=== PATIENT | female | born 1945 ===

== ENCOUNTER 2017-03-27 09:35 | Inpatient (IN) | payer MEDICARE, MEDICAID ==
--- NOTE | 2017-03-27 10:31 | ED PDOC ---
HPI: Dental Pain/Injury Time Seen by Provider: 03/27/17 09:59 Chief Complaint (Nursing): Dental Pain Chief Complaint (Provider): Gums bleeding History Per: Patient History/Exam Limitations: no limitations Onset/Duration Of Symptoms: Hrs (Since this morning) Additional Complaint(s): Zaina Rios is a 71 y/o female with a past medical history of Diabetes who is s/ p right knee replacement on 03/01/2017, and presents to the emergency department complaining of bleeding gums and bruising of the arms, hands, and knees, onset this morning. Patient took Eloquis post-operatively, which was discontinued 1 week ago. PMD: Alex Trejo MD Past Medical History - Medical History PMH: Arthritis, Diabetes - Surgical History Other surgeries: Right knee replacement on 03/01/2017, Left knee replacement Oct 2016 - Family History Family History: States: Unknown Family Hx - Social History Current smoker - smoking cessation education provided: No Alcohol: None Drugs: Denies - Home Medications Home Medications: Ambulatory Orders Medication Instructions Recorded Metformin HCl [Glucophage] 1 tab PO BID 03/27/17 Non-Formulary [Non-Formulary] 1 tab PO BID 03/27/17 SITagliptin [Januvia] 1 tab PO DAILY 03/27/17 oxyCODONE/Acetaminophen [Percocet 1 tab PO Q4H PRN 03/27/17 5/325 mg Tab] - Allergies Allergies/Adverse Reactions: Allergies Allergy/AdvReac Type Severity Reaction Status Date / Time moxifloxacin [From Avelox] Allergy RASH Verified 03/27/17 10:06 Review of Systems ROS Statement: Except As Marked, All Systems Reviewed And Found Negative ENT: Positive for: Other (Gums bleeding) Musculoskeletal: Positive for: Other (Bruising of the arms, hands, and knees) Physical Exam - Reviewed Nursing Documentation Reviewed: Yes Vital Signs Reviewed: Yes - Physical Exam Appears: Positive for: Well, Non-toxic, No Acute Distress Head Exam: Positive for: ATRAUMATIC, NORMAL INSPECTION, NORMOCEPHALIC Skin: Positive for: Normal Color, Warm, Dry Eye Exam: Positive for: EOMI, Normal appearance, PERRL ENT: Negative for: Other (Active bleeding from gums) Neck: Positive for: Normal, Painless ROM, Supple Cardiovascular/Chest: Positive for: Regular Rate, Rhythm. Negative for: Murmur Respiratory: Positive for: Normal Breath Sounds. Negative for: Accessory Muscle Use, Respiratory Distress Gastrointestinal/Abdominal: Positive for: Normal Exam, Soft. Negative for: Tenderness Back: Positive for: Normal Inspection. Negative for: Vertebral Tenderness Extremity: Positive for: Other (Right knee suture line is slightly erythematous without drainage. Ecchymosis and petechiae present along the lower extremities and hands bilaterally.) Neurologic/Psych: Positive for: Alert, Oriented - Laboratory Results Result Diagrams: 03/27/17 10:25 03/27/17 10:25 Medical Decision Making Medical Decision Making: Time: 10:15 Plan: --Labs --EKG --Pending reevaluation Scribe Attestation: Documented by Paris Beal, acting as a scribe for Hayden Mackenzie MD Provider Scribe Attestation: All medical record entries made by the Scribe were at my direction and personally dictated by me. I have reviewed the chart and agree that the record accurately reflects my personal performance of the history, physical exam, medical decision making, and the department course for this patient. I have also personally directed, reviewed, and agree with the discharge instructions and disposition. Disposition - Clinical Impression Clinical Impression: Thrombocytopenia, Anemia - Patient ED Disposition Is Patient to be Admitted: Yes - Disposition Disposition Time: 11:30 Condition: FAIR - Pt Status Changed To: Hospital Disposition Of: Inpatient - Admit Certification Admit to Inpatient:: After my assessment, the patient will require hospitalization for at least two midnights. This is because of the severity of symptoms shown, intensity of services needed, and/or the medical risk in this patient being treated as an outpatient. - POA Present On Arrival: None
[2017-03-27 10:50] LABS: ALB/GLOB RATIO 1.1 (1.0-2.1); ALT/SGPT 23 U/L (9-52); AST/SGOT 19 U/L (14-36); BLOOD UREA NITROGEN 12 mg/dl (7-17); GFR AFRICAN-AMERICAN > 60; GFR NON-AFRICAN AMERICAN > 60
[2017-03-27 10:51] LABS: BASO # 0.1 K/uL (0.0-0.2); BASO % 0.8 % (0.0-2.0); EOS # 0.2 K/uL (0.0-0.7); EOS % 2.5 % (0.0-4.0); HEMOGLOBIN 8.2 g/dL (12.0-16.0); LYMPH # 0.9 K/uL (1.0-4.3); LYMPH % 13.6 % (20.0-40.0); MEAN CELL VOLUME 70.7 fl (81.0-99.0); MEAN CORPUSCULAR HEMOGLOBIN 21.3 pg (27.0-31.0); MEAN CORPUSCULAR HGB CONC 30.1 g/dL (33.0-37.0); MONO # 0.8 K/uL (0.0-0.8); MONO % 11.6 % (0.0-10.0); NEUT # 4.7 K/uL (1.8-7.0); NEUT % 71.5 % (50.0-75.0); NRBC % 0.2 % (0.0-0.0); RBC 3.86 Mil/uL (3.80-5.20); RED CELL DISTRIBUTION WIDTH 18.8 % (11.5-14.5); WHITE BLOOD COUNT 6.6 K/uL (4.8-10.8)
[2017-03-27 11:01] LABS: PROTHROMBIN TIME 11.7 Seconds (9.8-13.1)
[2017-03-27] MEDS ORDERED: Absorbable Gelatin Sponge Size 12-7 TP ONE (15:43)
--- NOTE | 2017-03-27 16:17 | CP.PCM.HP ---
History of Present Illness - History of Present Illness History of Present Illness: CC: Tooth Bleeding / Ecchymosis / Thrombocytopenia / Anemia 71 y/o F,[facility] bleeding associated to bruises multiple sites on DOA with no improvement. As per PT, she was shaving her legs day [employer] and discovered bruises in he legs. On DOA AM she was brushing her teeth and notice that begins bleeding from her guns. Worsening symptoms: Critical Lab repot of PLT count in 9. Ecchymosis on all extremities and back, mild pain in R leg, intensity 3:10 2nd to s/p R TKR on February 2017. As per PT: After her first surgery Oct 2016 for L TKR she was taking Eliquis post op without any adverse effect like bleeding and after her last surgery for R TKR on February 2017, again she was placed in Eliquis for DVT prophylaxis without any adverse reaction of hematemesis, melena or ecchymosis until day [employer] that she discover the ecchymosis in her legs, also states that she discontinue the Eliquis one week [employer] Pt denied : Fever, chills, rectal bleeding, melena, weakness, dizziness, n/v/d , abdominal pain, urinary symptoms, CP, Palpitations, SOB, cough, sick contact, recent travel. PMHx: DMII, O/A, Hx L TKR 2016, R TKR March 01, 2017. Present on Admission - Present on Admission Any Indicators Present on Admission: No Review of Systems - Constitutional Constitutional: Other (negative) - EENT Eyes: Other (negative) Ears: Other (negative) Nose/Mouth/Throat: Bleeding Gums - Cardiovascular Cardiovascular: Other (negative) - Respiratory Respiratory: Other (negative) - Gastrointestinal Gastrointestinal: Other (negative) - Genitourinary Genitourinary: Other (negative) - Musculoskeletal Musculoskeletal: Arthralgias, Limited Range of Motion (R leg 2nd to surgery), Other (pain in R knee 2nd to surgery.) - Integumentary Integumentary: Unusual Bruising (extremities and back) - Neurological Neurological: Other (negative) - Psychiatric Psychiatric: Other (negative) - Endocrine Endocrine: Other (negative) - Hematologic/Lymphatic Hematologic: Other (negative) Past Patient History - Infectious Disease Hx of Infectious Diseases: None - Past Social History Smoking Status: Never Smoked Alcohol: None Drugs: Denies Home Situation {Lives}: With Family - CARDIAC Hx Cardiac Disorders: No - PULMONARY Hx Respiratory Disorders: No - NEUROLOGICAL Hx Neurological Disorder: No - HEENT Hx HEENT Problems: No - RENAL Hx Chronic Kidney Disease: No - ENDOCRINE/METABOLIC Hx Endocrine Disorders: Yes Hx Diabetes Mellitus Type 2: Yes - HEMATOLOGICAL/ONCOLOGICAL Hx Anemia: No - INTEGUMENTARY Hx Dermatological Problems: No - MUSCULOSKELETAL/RHEUMATOLOGICAL Hx Musculoskeletal Disorders: Yes Hx Arthritis: Yes (knees) - GASTROINTESTINAL Hx Gastrointestinal Disorders: No - GENITOURINARY/GYNECOLOGICAL Hx Genitourinary Disorders: No - PSYCHIATRIC Hx Psychophysiologic Disorder: No - SURGICAL HISTORY Hx Surgeries: Yes Other/Comment: left knee replacement oct 2016 and right knee replacement march 01 2017 - ANESTHESIA Hx Anesthesia: Yes Hx Anesthesia Reactions: No Meds Allergies/Adverse Reactions: Allergies Allergy/AdvReac Type Severity Reaction Status Date / Time moxifloxacin [From Avelox] Allergy RASH Verified 03/27/17 10:06 Physical Exam - Constitutional Appears: No Acute Distress - Head Exam Head Exam: NORMAL INSPECTION - Eye Exam Eye Exam: PERRL - ENT Exam Additional comments: mouth L upper tooth with a cloth , no active bleeding , part of thee tooth appears to be missing , area was not palpated to avoid active bleeding - Neck Exam Neck exam: Positive for: Normal Inspection - Respiratory Exam Respiratory Exam: NORMAL BREATHING PATTERN - Cardiovascular Exam Cardiovascular Exam: REGULAR RHYTHM - GI/Abdominal Exam GI & Abdominal Exam: Normal Bowel Sounds, Soft - Extremities Exam Additional comments: Ecchymosis Upper and lower extremities. R TKR , decreased ROM R leg 2nd to surgery. L TKR healed scar. - Back Exam Additional comments: Ecchymosis - Neurological Exam Neurological exam: Alert, Oriented x3 Additional comments: no motor/sensory deficit - Psychiatric Exam Psychiatric exam: Normal Mood - Skin Skin Exam: Warm Additional comments: Ecchymosis Extremities and back. Results - Vital Signs Recent Vital Signs: Last Vital Signs Temp 98.1 F 03/27/17 15:52 Pulse 84 03/27/17 15:52 Resp 18 03/27/17 15:52 BP 117/70 03/27/17 15:52 Pulse Ox 100 03/27/17 15:52 reviewed Yanely - Labs Result Diagrams: 03/28/17 05:10 03/28/17 05:10 Labs: Laboratory Results - last 24 hr 03/27/17 03/27/17 03/27/17 12:19 13:03 15:57 POC Glucose (mg/dL) 124 H Blood Type O POSITIVE Blood Type Confirm O POSITIVE Antibody Screen Negative BBK History Checked No verified bt reviewed J.PLorena Assessment & Plan (1) Thrombocytopenia Status: Acute Priority: High (2) Anemia Status: Acute Priority: High (3) Multiple bruises Status: Acute Priority: High (4) Status post total knee replacement, right Status: Chronic Priority: High (5) Status post total knee replacement, left Status: Chronic Priority: Medium (6) DMII (diabetes mellitus, type 2) Status: Chronic Priority: Medium - Assessment and Plan (Free Text) Plan: Transfuse 2 U PLT type and Crossmatch, 2 U PRBC, liquid diet, PT, f/u CXR, f/u in AM: CBC, manual PLT count, Hgb, Hematology Consult, see rest of orders. - Date & Time Date: 03/27/17 Time: 12:30
[2017-03-27] MEDS: Insulin Regular 100 units/ml SC SCH ×2 (16:35→23:00)
[2017-03-27 17:36] LABS: IRON 30 ug/dL (37-170)
[2017-03-27 17:38] LABS: FERRITIN 25.6 ng/mL
[2017-03-27 17:45] LABS: % IRON SATURATION 8 % (20-55); TOTAL IRON BINDING CAPACITY 371 ug/dL (250-450)
[2017-03-27] MEDS ORDERED: Promethazine/Cod 6.25mg-10mg/5ml Syr UD PO PRN (17:48)
[2017-03-27] MEDS: Oxycodone/Acetaminophen 5/325 mg Tab PO PRN (19:43)
[2017-03-28] MEDS: Oxycodone/Acetaminophen 5/325 mg Tab PO PRN ×4 (01:00→23:17)
[2017-03-28] MEDS: Insulin Regular 100 units/ml SC SCH ×4 (06:36→23:14)
[2017-03-28 07:11] LABS: BASO # 0.1 K/uL (0.0-0.2); BASO % 1.2 % (0.0-2.0); EOS # 0.2 K/uL (0.0-0.7); EOS % 3.1 % (0.0-4.0); HEMOGLOBIN 7.6 g/dL (12.0-16.0); LYMPH # 1.3 K/uL (1.0-4.3); LYMPH % 23.9 % (20.0-40.0); MEAN CELL VOLUME 70.1 fl (81.0-99.0); MEAN CORPUSCULAR HEMOGLOBIN 21.5 pg (27.0-31.0); MEAN CORPUSCULAR HGB CONC 30.6 g/dL (33.0-37.0); MEAN PLATELET VOLUME 11.3 fl (7.2-11.7); MONO # 0.7 K/uL (0.0-0.8); MONO % 13.5 % (0.0-10.0); NEUT # 3.2 K/uL (1.8-7.0); NEUT % 58.3 % (50.0-75.0); NRBC % 0.1 % (0.0-0.0); RBC 3.53 Mil/uL (3.80-5.20); WHITE BLOOD COUNT 5.5 K/uL (4.8-10.8)
[2017-03-28 07:35] LABS: ALB/GLOB RATIO 1.1 (1.0-2.1); ALBUMIN 3.7 g/dL (3.5-5.0); ALT/SGPT 24 U/L (9-52); AST/SGOT 24 U/L (14-36); BLOOD UREA NITROGEN 11 mg/dl (7-17); CALCIUM 9.8 mg/dL (8.4-10.2); GFR AFRICAN-AMERICAN > 60; GFR NON-AFRICAN AMERICAN > 60
--- NOTE | 2017-03-28 07:58 | CARD ---
APPROVED REPORT EKG Measurement Heart [id number] [id number] <Conclusion> Normal sinus rhythm Normal ECG
--- NOTE | 2017-03-28 11:47 | RAD ---
PROCEDURE: CHEST RADIOGRAPH, 1 VIEW HISTORY: coughing with clots COMPARISON: 10/07/2009 FINDINGS: LUNGS: Clear. PLEURA: No pneumothorax or pleural fluid seen. CARDIOVASCULAR: Normal. OSSEOUS STRUCTURES: Healed fracture right humeral diaphysis. Severe left glenohumeral osteoarthritis. VISUALIZED UPPER ABDOMEN: Normal. OTHER FINDINGS: None. IMPRESSION: No active disease.
--- NOTE | 2017-03-28 11:49 | CP.PCM.CON ---
History of Present Illness - History of Present Illness History of Present Illness: This is a 71 yrs old female who was admitted for severe thrombocytopenia. She had a right knee replacement 3 weeks ago, and was told to take eliquis for 2 weeks. Pt stopped the eliquis 1 week ago. She had no complication during surgery, and after, She did not take any lovenox because she does not like injections.. She was not on any new medicines either. She did not have any problem with the 1st knee replacement. She was on no new drugs , no aspirin or plavix. She is on medications for her diiabetes, but it is the same medicine she has had for a long time. Her platelet count was 9 om admission and hgb 8.2. The hgb today is 7.5 and the platelets were 10K. Both of these were after she had been given a platelet transfusion. She had bleeding from a tooth and it did not stop until she came to the ER. Past Patient History - Infectious Disease Hx of Infectious Diseases: None - Past Medical History & Family History Past Medical History?: No - Past Social History Smoking Status: Never Smoked Alcohol: None Drugs: Denies Home Situation {Lives}: With Family - CARDIAC Hx Cardiac Disorders: No - PULMONARY Hx Respiratory Disorders: No - NEUROLOGICAL Hx Neurological Disorder: No - HEENT Hx HEENT Problems: No - RENAL Hx Chronic Kidney Disease: No - ENDOCRINE/METABOLIC Hx Endocrine Disorders: Yes Hx Diabetes Mellitus Type 2: Yes - HEMATOLOGICAL/ONCOLOGICAL Hx Anemia: No - INTEGUMENTARY Hx Dermatological Problems: No - MUSCULOSKELETAL/RHEUMATOLOGICAL Hx Musculoskeletal Disorders: Yes Hx Arthritis: Yes (knees) - GASTROINTESTINAL Hx Gastrointestinal Disorders: No - GENITOURINARY/GYNECOLOGICAL Hx Genitourinary Disorders: No - PSYCHIATRIC Hx Psychophysiologic Disorder: No - SURGICAL HISTORY Hx Surgeries: Yes Other/Comment: left knee replacement oct 2016 and right knee replacement march 01 2017 - ANESTHESIA Hx Anesthesia: Yes Hx Anesthesia Reactions: No Meds Allergies/Adverse Reactions: Allergies Allergy/AdvReac Type Severity Reaction Status Date / Time moxifloxacin [From Avelox] Allergy RASH Verified 03/27/17 10:06 - Medications Medications: Current Medications Insulin Human Regular (Humulin R) 0 units SC ACHS LALO PRN Reason: Protocol Last Admin: 03/28/17 06:36 Dose: Not Given Ondansetron HCl (Zofran Inj) 4 mg IVP Q4 PRN PRN Reason: Nausea/Vomiting Oxycodone/Acetaminophen (Percocet 5/325 Mg Tab) 1 tab PO Q4H PRN PRN Reason: Pain, Mild (1-3) Stop: 03/30/17 15:42 Last Admin: 03/28/17 10:18 Dose: 1 tab Promethazine HCl/Codeine (Phenergan/Codeine Oral Syrup) 10 ml PO Q4H PRN PRN Reason: Cough Last Admin: 03/27/17 18:04 Dose: 10 ml Physical Exam - Additional Findings Additional findings: Physical exam' Alert, well oriented in no acute distress neck; Supple, no adenopathy Chest; Clear, no rales or rhonchi Heart; RSR, no murmur Abd; Soft, no mass, no h/s megaly Results - Vital Signs Recent Vital Signs: Last Vital Signs Temp 98.4 F 03/28/17 08:00 Pulse 83 03/28/17 09:00 Resp 18 03/28/17 08:00 BP 94/46 L 03/28/17 08:00 Pulse Ox 97 03/28/17 08:00 - Labs Result Diagrams: 03/28/17 05:10 03/28/17 05:10 Labs: Laboratory Results - last 24 hr 03/27/17 03/27/17 03/27/17 12:19 13:03 15:50 WBC RBC Hgb Hct MCV MCH MCHC RDW Plt Count Manual Plt Count 8 L* MPV Neut % (Auto) Lymph % (Auto) Stan[place] % (Auto) Eos % (Auto) Baso % (Auto) Neut # Lymph # Stan[place] # Eos # Baso # Retic Count 1.7 H Fibrinogen Sodium Potassium Chloride Carbon Dioxide Anion Gap BUN Creatinine Est GFR ( Amer) Est GFR (Non-Af Amer) POC Glucose (mg/dL) Random Glucose Calcium Iron TIBC % Saturation Ferritin Total Bilirubin AST ALT Alkaline Phosphatase Total Protein Albumin Globulin Albumin/Globulin Ratio Vitamin B12 Blood Type O POSITIVE Blood Type Confirm O POSITIVE Antibody Screen Negative Crossmatch See Detail BBK History Checked No verified bt 03/27/17 03/27/17 03/27/17 15:57 16:00 16:00 WBC RBC Hgb Hct MCV MCH MCHC RDW Plt Count Manual Plt Count MPV Neut % (Auto) Lymph % (Auto) Stan[place] % (Auto) Eos % (Auto) Baso % (Auto) Neut # Lymph # Stan[place] # Eos # Baso # Retic Count Fibrinogen 546 H Sodium Potassium Chloride Carbon Dioxide Anion Gap BUN Creatinine Est GFR ( Amer) Est GFR (Non-Af Amer) POC Glucose (mg/dL) 124 H Random Glucose Calcium Iron 30 L TIBC 371 % Saturation 8 L Ferritin Total Bilirubin AST ALT Alkaline Phosphatase Total Protein Albumin Globulin Albumin/Globulin Ratio Vitamin B12 Blood Type Blood Type Confirm Antibody Screen Crossmatch BBK History Checked 03/27/17 03/27/17 03/28/17 16:00 21:07 05:08 WBC RBC Hgb Hct MCV MCH MCHC RDW Plt Count Manual Plt Count MPV Neut % (Auto) Lymph % (Auto) Stan[place] % (Auto) Eos % (Auto) Baso % (Auto) Neut # Lymph # Stan[place] # Eos # Baso # Retic Count Fibrinogen Sodium Potassium Chloride Carbon Dioxide Anion Gap BUN Creatinine Est GFR ( Amer) Est GFR (Non-Af Amer) POC Glucose (mg/dL) 103 77 Random Glucose Calcium Iron TIBC % Saturation Ferritin 25.6 Total Bilirubin AST ALT Alkaline Phosphatase Total Protein Albumin Globulin Albumin/Globulin Ratio Vitamin B12 258 Blood Type Blood Type Confirm Antibody Screen Crossmatch BBK History Checked 03/28/17 03/28/17 03/28/17 05:10 05:10 11:37 WBC 5.5 RBC 3.53 L Hgb 7.6 L Hct 24.8 L MCV 70.1 L MCH 21.5 L MCHC 30.6 L RDW 19.0 H Plt Count 10 L* Manual Plt Count MPV 11.3 Neut % (Auto) 58.3 Lymph % (Auto) 23.9 Stan[place] % (Auto) 13.5 H Eos % (Auto) 3.1 Baso % (Auto) 1.2 Neut # 3.2 Lymph # 1.3 Stanly # 0.7 Eos # 0.2 Baso # 0.1 Retic Count Fibrinogen Sodium 141 Potassium 3.6 Chloride 105 Carbon Dioxide 28 Anion Gap 12 BUN 11 Creatinine 0.5 L Est GFR ( Amer) > 60 Est GFR (Non-Af Amer) > 60 POC Glucose (mg/dL) 113 H Random Glucose 80 Calcium 9.8 Iron TIBC % Saturation Ferritin Total Bilirubin 0.6 AST 24 ALT 24 Alkaline Phosphatase 78 Total Protein 7.2 Albumin 3.7 Globulin 3.5 Albumin/Globulin Ratio 1.1 Vitamin B12 Blood Type Blood Type Confirm Antibody Screen Crossmatch BBK History Checked Assessment & Plan - Assessment and Plan (Free Text) Assessment: Impression; Severe thrombocytopenia snd severe anemia .Etiology to be determined. Plan: Plan; Will transfuse today also. If the counts do not improve by tomorrow, will do a bone marrow test have ordered anti platelet antibodies. - Date & Time Date: 03/28/17 Time: 12:00
--- NOTE | 2017-03-28 16:35 | CP.PCM.PN ---
Subjective - Date & Time of Evaluation Date of Evaluation: 03/28/17 Time of Evaluation: 11:30 - Subjective Subjective: F/U Thrombocytopenia/ Anemia Pt with no A/D, family at bedside, no c/o, no further bleeding thought the mouth. Objective - Vital Signs/Intake and Output Vital Signs (last 24 hours): Temp Pulse Resp BP Pulse Ox 98.1 F 78 20 120/68 98 03/28/17 15:38 03/28/17 15:38 03/28/17 15:38 03/28/17 15:38 03/28/17 15:38 - Medications Medications: Current Medications Insulin Human Regular (Humulin R) 0 units SC ACHS LALO PRN Reason: Protocol Last Admin: 03/28/17 11:30 Dose: Not Given Ondansetron HCl (Zofran Inj) 4 mg IVP Q4 PRN PRN Reason: Nausea/Vomiting Oxycodone/Acetaminophen (Percocet 5/325 Mg Tab) 1 tab PO Q4H PRN PRN Reason: Pain, Mild (1-3) Stop: 03/30/17 15:42 Last Admin: 03/28/17 10:18 Dose: 1 tab Promethazine HCl/Codeine (Phenergan/Codeine Oral Syrup) 10 ml PO Q4H PRN PRN Reason: Cough Last Admin: 03/27/17 18:04 Dose: 10 ml - Labs Labs: 03/28/17 05:10 03/28/17 05:10 PT 11.7 Seconds (9.8-13.1) 03/27/17 10:25 INR 1.0 (0.9-1.2) 03/27/17 10:25 - Constitutional Appears: No Acute Distress - Head Exam Head Exam: NORMAL INSPECTION - Eye Exam Eye Exam: PERRL - ENT Exam Additional comments: Mouth: L upper tooth with a cloth, no active bleeding, part of the tooth appear to be missing, area was not palpated to avoid active bleeding. - Neck Exam Neck Exam: Normal Inspection - Respiratory Exam Respiratory Exam: NORMAL BREATHING PATTERN - Cardiovascular Exam Cardiovascular Exam: REGULAR RHYTHM - GI/Abdominal Exam GI & Abdominal Exam: Soft, Normal Bowel Sounds - Extremities Exam Additional comments: Ecchymosis upper and lower extremities. R TKR recent scar , decreased ROM 2nd to surgery, L TKR healed scar. - Back Exam Additional comments: Ecchymosis. - Neurological Exam Neurological Exam: Alert, Oriented x3. absent: Motor Sensory Deficit - Psychiatric Exam Psychiatric exam: Normal Mood - Skin Skin Exam: Warm Assessment and Plan (1) Thrombocytopenia Status: Acute (2) Anemia Status: Acute (3) Multiple bruises Status: Acute (4) Status post total knee replacement, right Status: Chronic (5) Status post total knee replacement, left Status: Chronic (6) DMII (diabetes mellitus, type 2) Status: Chronic - Assessment and Plan (Free Text) Plan: Transfuse 2 U PRBC, Hgb was in 7.8 ,f/u 2 U PLT transfusion, f/u in AM CBC, PLT count , Labs Iron def , B12 def, Hematology implementation consultant planning Bone Marrow in am if counts do not improve
[2017-03-29] MEDS: Oxycodone/Acetaminophen 5/325 mg Tab PO PRN ×3 (05:20→17:52)
[2017-03-29] MEDS: Insulin Regular 100 units/ml SC SCH ×4 (06:29→21:54)
[2017-03-29 06:57] LABS: HEMOGLOBIN 10.9 g/dL (12.0-16.0); MEAN CELL VOLUME 74.5 fl (81.0-99.0); MEAN CORPUSCULAR HEMOGLOBIN 23.5 pg (27.0-31.0); MEAN CORPUSCULAR HGB CONC 31.5 g/dL (33.0-37.0); RBC 4.63 Mil/uL (3.80-5.20); RED CELL DISTRIBUTION WIDTH 21.4 % (11.5-14.5); WHITE BLOOD COUNT 7.2 K/uL (4.8-10.8)
[2017-03-29] MEDS ORDERED: Lidocaine 2% Inj (20ml) SC ONE (08:15)
--- NOTE | 2017-03-29 09:23 | CP.PCM.PN ---
Subjective - Date & Time of Evaluation Date of Evaluation: 03/29/17 Time of Evaluation: 09:21 - Subjective Subjective: Pt's hgb is stable, but the plateet iare still very low 9k. Will do a bone marrow test today Objective - Vital Signs/Intake and Output Vital Signs (last 24 hours): Temp Pulse Resp BP Pulse Ox 97.6 F 86 20 135/67 100 03/29/17 08:05 03/29/17 08:05 03/29/17 08:05 03/29/17 08:05 03/29/17 08:05 - Medications Medications: Current Medications Cyanocobalamin (Vitamin B12 1000 Mcg/Ml Inj) 1,000 mcg IM DAILY LALO Insulin Human Regular (Humulin R) 0 units SC ACHS LALO PRN Reason: Protocol Last Admin: 03/29/17 06:29 Dose: Not Given Ondansetron HCl (Zofran Inj) 4 mg IVP Q4 PRN PRN Reason: Nausea/Vomiting Oxycodone/Acetaminophen (Percocet 5/325 Mg Tab) 1 tab PO Q4H PRN PRN Reason: Pain, Mild (1-3) Stop: 03/30/17 15:42 Last Admin: 03/29/17 05:20 Dose: 1 tab Promethazine HCl/Codeine (Phenergan/Codeine Oral Syrup) 10 ml PO Q4H PRN PRN Reason: Cough Last Admin: 03/27/17 18:04 Dose: 10 ml - Labs Labs: 03/29/17 06:00 03/28/17 05:10 PT 11.7 Seconds (9.8-13.1) 03/27/17 10:25 INR 1.0 (0.9-1.2) 03/27/17 10:25
--- NOTE | 2017-03-29 10:32 | CP.PCM.PN ---
Subjective - Date & Time of Evaluation Date of Evaluation: 03/29/17 Time of Evaluation: 10:30 - Subjective Subjective: Bone marrow aspiration done from the left iliac crest under local anesthesia. Procedure tolerated well. Result to follow. Objective - Vital Signs/Intake and Output Vital Signs (last 24 hours): Temp Pulse Resp BP Pulse Ox 97.6 F 86 20 135/67 100 03/29/17 08:05 03/29/17 08:05 03/29/17 08:05 03/29/17 08:05 03/29/17 08:05 - Medications Medications: Current Medications Cyanocobalamin (Vitamin B12 1000 Mcg/Ml Inj) 1,000 mcg IM DAILY LALO Insulin Human Regular (Humulin R) 0 units SC ACHS LALO PRN Reason: Protocol Last Admin: 03/29/17 06:29 Dose: Not Given Ondansetron HCl (Zofran Inj) 4 mg IVP Q4 PRN PRN Reason: Nausea/Vomiting Oxycodone/Acetaminophen (Percocet 5/325 Mg Tab) 1 tab PO Q4H PRN PRN Reason: Pain, Mild (1-3) Stop: 03/30/17 15:42 Last Admin: 03/29/17 10:10 Dose: 1 tab Promethazine HCl/Codeine (Phenergan/Codeine Oral Syrup) 10 ml PO Q4H PRN PRN Reason: Cough Last Admin: 03/27/17 18:04 Dose: 10 ml - Labs Labs: 03/29/17 06:00 03/28/17 05:10 PT 11.7 Seconds (9.8-13.1) 03/27/17 10:25 INR 1.0 (0.9-1.2) 03/27/17 10:25
--- NOTE | 2017-03-29 14:22 | CP.PCM.PN ---
Subjective - Date & Time of Evaluation Date of Evaluation: 03/29/17 Time of Evaluation: 11:40 - Subjective Subjective: F/U Thrombocytopenia. Objective - Vital Signs/Intake and Output Vital Signs (last 24 hours): Temp Pulse Resp BP Pulse Ox 97.9 F 85 20 124/65 96 03/29/17 12:27 03/29/17 12:27 03/29/17 12:27 03/29/17 12:27 03/29/17 12:27 - Medications Medications: Current Medications Cyanocobalamin (Vitamin B12 1000 Mcg Tab) 1,000 mcg PO DAILY [facility] Epoetin Reese (Procrit) 10,000 unit SC MWF [facility] Iron Sucrose 100 mg/ Sodium (Chloride) 105 mls @ 105 mls/hr IVPB DAILY [facility] Insulin Human Regular (Humulin R) 0 units SC ACHS LALO PRN Reason: Protocol Last Admin: 03/29/17 11:30 Dose: 1 unit Ondansetron HCl (Zofran Inj) 4 mg IVP Q4 PRN PRN Reason: Nausea/Vomiting Oxycodone/Acetaminophen (Percocet 5/325 Mg Tab) 1 tab PO Q4H PRN PRN Reason: Pain, Mild (1-3) Stop: 03/30/17 15:42 Last Admin: 03/29/17 10:10 Dose: 1 tab Prednisone (Prednisone Tab) 20 mg PO TID [facility] Last Admin: 03/29/17 14:07 Dose: 20 mg Promethazine HCl/Codeine (Phenergan/Codeine Oral Syrup) 10 ml PO Q4H PRN PRN Reason: Cough Last Admin: 03/27/17 18:04 Dose: 10 ml - Labs Labs: 03/29/17 06:00 03/28/17 05:10 PT 11.7 Seconds (9.8-13.1) 03/27/17 10:25 INR 1.0 (0.9-1.2) 03/27/17 10:25 - Constitutional Appears: No Acute Distress - Head Exam Head Exam: NORMAL INSPECTION - Eye Exam Eye Exam: PERRL - ENT Exam Additional comments: Mouth: L upper tooth with a cloth, no active bleeding, part of the tooth appear to be missing, area was not palpated to avoid bleeding. - Neck Exam Neck Exam: Normal Inspection - Respiratory Exam Respiratory Exam: NORMAL BREATHING PATTERN - Cardiovascular Exam Cardiovascular Exam: REGULAR RHYTHM - GI/Abdominal Exam GI & Abdominal Exam: Soft, Normal Bowel Sounds - Extremities Exam Additional comments: Ecchymosis all extremities, R TKR dressing in place with decreased ROM 2nd to recent surgery, L TKR healed scar. - Back Exam Additional comments: Ecchymosis - Neurological Exam Neurological Exam: Alert, Oriented x3. absent: Motor Sensory Deficit - Psychiatric Exam Psychiatric exam: Normal Mood - Skin Skin Exam: Warm Assessment and Plan (1) Thrombocytopenia Status: Acute (2) Anemia Status: Acute (3) Multiple bruises Status: Acute (4) Status post total knee replacement, right Status: Chronic (5) Status post total knee replacement, left Status: Chronic (6) DMII (diabetes mellitus, type 2) Status: Chronic
[2017-03-29] MEDS ORDERED: DiphenhydrAMINE 50 mg/ml Inj IVP STA (16:06)
[2017-03-29] MEDS: Artificial Tears Opht Soln OU PRN (16:22)
[2017-03-30] MEDS: guaiFENesin DM 200 mg-20 mg/10 ml UD PO PRN (00:19)
[2017-03-30] MEDS: Oxycodone/Acetaminophen 5/325 mg Tab PO PRN ×2 (00:22→13:50)
[2017-03-30] MEDS: Insulin Regular 100 units/ml SC SCH ×4 (07:30→21:42)
[2017-03-30] MEDS ORDERED: EPOETIN ALFA 10,000 UNIT/ML ML SC SCH (09:00)
[2017-03-30 10:14] LABS: BASO % 0.3 % (0.0-2.0); EOS % 0.3 % (0.0-4.0); HEMOGLOBIN 10.2 g/dL (12.0-16.0); LYMPH # 1.8 K/uL (1.0-4.3); LYMPH % 18.3 % (20.0-40.0); MEAN CELL VOLUME 74.6 fl (81.0-99.0); MEAN CORPUSCULAR HEMOGLOBIN 23.7 pg (27.0-31.0); MEAN CORPUSCULAR HGB CONC 31.8 g/dL (33.0-37.0); MEAN PLATELET VOLUME 12.9 fl (7.2-11.7); MONO # 1.1 K/uL (0.0-0.8); MONO % 11.2 % (0.0-10.0); NEUT % 69.9 % (50.0-75.0); RBC 4.29 Mil/uL (3.80-5.20); RED CELL DISTRIBUTION WIDTH 21.6 % (11.5-14.5)
--- NOTE | 2017-03-30 10:20 | CP.PCM.PN ---
Subjective - Date & Time of Evaluation Date of Evaluation: 03/30/17 Time of Evaluation: 10:17 - Subjective Subjective: Pt still has petichii. Her platelet count result is not yet available , neither is the platelet antibody result. she has been started on prednisone until we get the result. The bone marrow smear did not show any abnormality. Objective - Vital Signs/Intake and Output Vital Signs (last 24 hours): Temp Pulse Resp BP Pulse Ox 98.1 F 73 18 124/64 100 03/30/17 08:00 03/30/17 08:00 03/30/17 08:00 03/30/17 08:00 03/30/17 08:00 - Medications Medications: Current Medications Artificial Tears (Artificial Tears) 2 drop OU Q4 PRN PRN Reason: Dry eyes Last Admin: 03/29/17 16:22 Dose: 2 drop Cyanocobalamin (Vitamin B12 1000 Mcg Tab) 1,000 mcg PO DAILY [facility] Last Admin: 03/30/17 09:23 Dose: 1,000 mcg Epoetin Reese (Procrit) 10,000 unit SC MWF [facility] Last Admin: 03/30/17 09:22 Dose: 10,000 unit Guaifenesin/Dextromethorphan (Robitussin Dm) 10 ml PO Q6 PRN PRN Reason: Cough Last Admin: 03/30/17 00:19 Dose: 10 ml Iron Sucrose 100 mg/ Sodium (Chloride) 105 mls @ 105 mls/hr IVPB DAILY [facility] Last Admin: 03/29/17 21:44 Dose: 105 mls/hr Insulin Human Regular (Humulin R) 0 units SC ACHS [facility] PRN Reason: Protocol Last Admin: 03/29/17 21:54 Dose: Not Given Ondansetron HCl (Zofran Inj) 4 mg IVP Q4 PRN PRN Reason: Nausea/Vomiting Oxycodone/Acetaminophen (Percocet 5/325 Mg Tab) 1 tab PO Q4H PRN PRN Reason: Pain, Mild (1-3) Stop: 03/30/17 15:42 Last Admin: 03/30/17 00:22 Dose: 1 tab Prednisone (Prednisone Tab) 20 mg PO TID [facility] Last Admin: 03/30/17 09:22 Dose: 20 mg - Labs Labs: 03/29/17 06:00 07/17/17 05:10 PT 11.7 Seconds (9.8-13.1) 03/27/17 10:25 INR 1.0 (0.9-1.2) 03/27/17 10:25
--- NOTE | 2017-03-30 13:34 | CP.PCM.PN ---
Subjective - Date & Time of Evaluation Date of Evaluation: 03/30/17 Time of Evaluation: 11:20 - Subjective Subjective: F/U Thrombocytopenia. No AD , N/C Objective - Vital Signs/Intake and Output Vital Signs (last 24 hours): Temp Pulse Resp BP Pulse Ox 97.5 F L 72 18 126/70 95 03/30/17 13:00 03/30/17 13:00 03/30/17 13:00 03/30/17 13:00 03/30/17 13:00 - Medications Medications: Current Medications Artificial Tears (Artificial Tears) 2 drop OU Q4 PRN PRN Reason: Dry eyes Last Admin: 03/29/17 16:22 Dose: 2 drop Cyanocobalamin (Vitamin B12 1000 Mcg Tab) 1,000 mcg PO DAILY [facility] Last Admin: 03/30/17 09:23 Dose: 1,000 mcg Epoetin Reese (Procrit) 10,000 unit SC MWF [facility] Last Admin: 03/30/17 09:22 Dose: 10,000 unit Guaifenesin/Dextromethorphan (Robitussin Dm) 10 ml PO Q6 PRN PRN Reason: Cough Last Admin: 03/30/17 00:19 Dose: 10 ml Iron Sucrose 100 mg/ Sodium (Chloride) 105 mls @ 105 mls/hr IVPB DAILY [facility] Last Admin: 03/29/17 21:44 Dose: 105 mls/hr Insulin Human Regular (Humulin R) 0 units SC ACHS [facility] PRN Reason: Protocol Last Admin: 03/29/17 21:54 Dose: Not Given Ondansetron HCl (Zofran Inj) 4 mg IVP Q4 PRN PRN Reason: Nausea/Vomiting Oxycodone/Acetaminophen (Percocet 5/325 Mg Tab) 1 tab PO Q4H PRN PRN Reason: Pain, Mild (1-3) Stop: 03/30/17 15:42 Last Admin: 03/30/17 00:22 Dose: 1 tab Prednisone (Prednisone Tab) 20 mg PO TID [facility] Last Admin: 03/30/17 09:22 Dose: 20 mg - Labs Labs: 03/30/17 09:45 03/28/17 05:10 PT 11.7 Seconds (9.8-13.1) 03/27/17 10:25 INR 1.0 (0.9-1.2) 03/27/17 10:25 - Constitutional Appears: No Acute Distress - Head Exam Head Exam: NORMAL INSPECTION - Eye Exam Eye Exam: PERRL - ENT Exam Additional comments: Left upper tooth no bleeding. - Neck Exam Neck Exam: Normal Inspection - Respiratory Exam Respiratory Exam: NORMAL BREATHING PATTERN - Cardiovascular Exam Cardiovascular Exam: REGULAR RHYTHM - GI/Abdominal Exam GI & Abdominal Exam: Soft, Normal Bowel Sounds - Extremities Exam Additional comments: Ecchymosis upper and lower extremities, R TKR, decreased ROM R leg 2nd to recent surgery, L TKR healed scar - Back Exam Additional comments: Ecchymosis - Neurological Exam Neurological Exam: Alert, Oriented x3. absent: Motor Sensory Deficit - Psychiatric Exam Psychiatric exam: Normal Mood - Skin Skin Exam: Warm Assessment and Plan (1) Thrombocytopenia Status: Acute (2) Anemia Status: Acute (3) Multiple bruises Status: Acute (4) Status post total knee replacement, right Status: Chronic (5) Status post total knee replacement, left Status: Chronic (6) DMII (diabetes mellitus, type 2) Status: Chronic - Assessment and Plan (Free Text) Plan: Hgb 10.2 , Platelet 7, Direct Plat bound IGG pos , Bone Marrow negative , to have Platelet transfusion , continue Prednisone , f/u Hgb , Platelet am, Hematology f/u. appreciated
[2017-03-31] MEDS: guaiFENesin DM 200 mg-20 mg/10 ml UD PO PRN (02:12)
[2017-03-31 07:15] LABS: HEMOGLOBIN 10.3 g/dL (12.0-16.0); MEAN CELL VOLUME 74.9 fl (81.0-99.0); MEAN CORPUSCULAR HEMOGLOBIN 23.5 pg (27.0-31.0); MEAN CORPUSCULAR HGB CONC 31.3 g/dL (33.0-37.0); RBC 4.38 Mil/uL (3.80-5.20); WHITE BLOOD COUNT 11.8 K/uL (4.8-10.8)
--- NOTE | 2017-03-31 08:14 | CP.PCM.PN ---
Subjective - Date & Time of Evaluation Date of Evaluation: 03/31/17 Time of Evaluation: 08:10 - Subjective Subjective: Pt has no fresh bleeding today but the platelet count is only 9K today. Today I received the result of the anmtiplatelet antibody and it is positive. That would be the reason why the platelet count does not go up inspite of platelets transfusions. I had started her on ssssssprednisone but her count is so low that I feel she would do better with IVGG. I have ordered it for 3 days and stop steroids tomorrow. Objective - Vital Signs/Intake and Output Vital Signs (last 24 hours): Temp Pulse Resp BP Pulse Ox 97.8 F 92 H 19 136/78 98 03/31/17 04:55 03/31/17 04:55 03/31/17 04:55 03/31/17 04:55 03/31/17 04:55 - Medications Medications: Current Medications Artificial Tears (Artificial Tears) 2 drop OU Q4 PRN PRN Reason: Dry eyes Last Admin: 03/29/17 16:22 Dose: 2 drop Cyanocobalamin (Vitamin B12 1000 Mcg Tab) 1,000 mcg PO DAILY [facility] Last Admin: 03/30/17 09:23 Dose: 1,000 mcg Epoetin Reese (Procrit) 10,000 unit SC MWF [facility] Last Admin: 03/30/17 09:22 Dose: 10,000 unit Guaifenesin/Dextromethorphan (Robitussin Dm) 10 ml PO Q6 PRN PRN Reason: Cough Last Admin: 03/31/17 02:12 Dose: 10 ml Iron Sucrose 100 mg/ Sodium (Chloride) 105 mls @ 105 mls/hr IVPB DAILY [facility] Last Admin: 03/30/17 10:30 Dose: 105 mls/hr Insulin Human Regular (Humulin R) 0 units SC ACHS [facility] PRN Reason: Protocol Last Admin: 03/30/17 21:42 Dose: Not Given Ondansetron HCl (Zofran Inj) 4 mg IVP Q4 PRN PRN Reason: Nausea/Vomiting Prednisone (Prednisone Tab) 20 mg PO TID [facility] Last Admin: 03/30/17 17:43 Dose: 20 mg - Labs Labs: 03/31/17 05:00 03/28/17 05:10 PT 11.7 Seconds (9.8-13.1) 03/27/17 10:25 INR 1.0 (0.9-1.2) 03/27/17 10:25
[2017-03-31] MEDS ORDERED: DiphenhydrAMINE 50 mg/ml Inj IVP STA (08:31)
[2017-03-31] MEDS: Insulin Regular 100 units/ml SC SCH ×4 (09:51→22:33)
[2017-03-31] MEDS: methylPREDNISolone 40 MG in Sodium Chloride 0.9% 50 ML IVPB SCH (10:18)
[2017-03-31] MEDS: STERILE WATER IV SCH (10:26)
[2017-03-31] MEDS: IMMUNE GLOBULIN IV SCH (10:26)
--- NOTE | 2017-03-31 15:32 | CP.PCM.PN ---
Subjective - Date & Time of Evaluation Date of Evaluation: 03/31/17 Time of Evaluation: 11:50 - Subjective Subjective: Pain in the knees R>L Objective - Vital Signs/Intake and Output Vital Signs (last 24 hours): Temp Pulse Resp BP Pulse Ox 97.9 F 63 18 123/69 97 03/31/17 12:17 03/31/17 12:17 03/31/17 12:17 03/31/17 12:17 03/31/17 12:17 - Medications Medications: Current Medications Artificial Tears (Artificial Tears) 2 drop OU Q4 PRN PRN Reason: Dry eyes Last Admin: 03/29/17 16:22 Dose: 2 drop Cyanocobalamin (Vitamin B12 1000 Mcg Tab) 1,000 mcg PO DAILY [facility] Last Admin: 03/31/17 09:42 Dose: 1,000 mcg Guaifenesin/Dextromethorphan (Robitussin Dm) 10 ml PO Q6 PRN PRN Reason: Cough Last Admin: 03/31/17 02:12 Dose: 10 ml Iron Sucrose 100 mg/ Sodium (Chloride) 105 mls @ 105 mls/hr IVPB DAILY [facility] Last Admin: 03/31/17 14:35 Dose: 105 mls/hr Immune Globulin 30 gm/ Sterile (Water) 300 mls @ 100 mls/hr IV DAILY [facility] Last Admin: 03/31/17 10:26 Dose: 100 mls/hr Methylprednisolone 40 mg/ (Sodium Chloride) 50 mls @ 100 mls/hr IVPB DAILY [facility] Last Admin: 03/31/17 10:18 Dose: 100 mls/hr Insulin Human Regular (Humulin R) 0 units SC ACHS [facility] PRN Reason: Protocol Last Admin: 03/31/17 12:38 Dose: Not Given Ondansetron HCl (Zofran Inj) 4 mg IVP Q4 PRN PRN Reason: Nausea/Vomiting Oxycodone/Acetaminophen (Percocet 5/325 Mg Tab) 1 tab PO Q4H PRN PRN Reason: Pain, severe (8-10) Stop: 04/03/17 12:21 - Labs Labs: 03/31/17 05:00 03/28/17 05:10 PT 11.7 Seconds (9.8-13.1) 03/27/17 10:25 INR 1.0 (0.9-1.2) 03/27/17 10:25 - Constitutional Appears: No Acute Distress - Head Exam Head Exam: NORMAL INSPECTION - Eye Exam Pupil Exam: PERRL - ENT Exam Additional comments: L upper tooth no bleeding. - Neck Exam Neck Exam: Normal Inspection - Respiratory Exam Respiratory Exam: Clear to Ausculation Bilateral - Cardiovascular Exam Cardiovascular Exam: REGULAR RHYTHM - GI/Abdominal Exam GI & Abdominal Exam: Soft, Normal Bowel Sounds - Extremities Exam Extremities Exam: Tenderness (R knee ,with ROM decreases 2nd to tenderness , recent TKR scar , L Knee minimal tenderness , TKR scar) Additional comments: ecchymosis U/E L/E. - Back Exam Back Exam: NORMAL INSPECTION - Neurological Exam Neurological Exam: Alert, CN II-XII Intact, Oriented x3. absent: Motor Sensory Deficit - Psychiatric Exam Psychiatric exam: Normal Affect, Normal Mood - Skin Additional comments: ecchymosis Assessment and Plan (1) Thrombocytopenia Status: Acute (2) Anemia Status: Acute (3) Multiple bruises Status: Acute (4) Status post total knee replacement, right Status: Chronic (5) Status post total knee replacement, left Status: Chronic (6) DMII (diabetes mellitus, type 2) Status: Chronic - Assessment and Plan (Free Text) Plan: Platelet 7 , Hgb 10.2 ,
[2017-03-31] MEDS: Oxycodone/Acetaminophen 5/325 mg Tab PO PRN (21:15)
[2017-04-01] MEDS: Insulin Regular 100 units/ml SC SCH ×5 (06:34→22:35)
[2017-04-01] MEDS: methylPREDNISolone 40 MG in Sodium Chloride 0.9% 50 ML IVPB SCH (08:26)
[2017-04-01] MEDS ORDERED: DiphenhydrAMINE 50 mg/ml Inj IVP ONE (08:39)
[2017-04-01] MEDS ORDERED: Thrombin Topical 5,000 IU Spray Kit TOP ONE (09:05)
[2017-04-01] MEDS: STERILE WATER IV SCH (09:20)
[2017-04-01] MEDS: IMMUNE GLOBULIN IV SCH (09:20)
--- NOTE | 2017-04-01 09:24 | CP.PCM.PN ---
Subjective - Date & Time of Evaluation Date of Evaluation: 04/01/17 Time of Evaluation: : - Subjective Subjective: Pt has no new petichii, but she still has ayse oozing from the tooth. She was started on IVGG yesterday but today's cbc is not yet available. She will get the IVGG for a total of 3 days. She is afebrile and had no side effect from the iimmunoglobulin. Will try and use some tropical thrombin for the bleeding tooth. Objective - Vital Signs/Intake and Output Vital Signs (last 24 hours): Temp Pulse Resp BP Pulse Ox 98.3 F 71 20 122/67 100 04/01/17 08:00 04/01/17 08:00 04/01/17 08:00 04/01/17 08:00 04/01/17 08:00 Intake and Output: 04/01/17 04/01/17 06:59 18:59 Intake Total 1610 Balance 1610 - Medications Medications: Current Medications Acetaminophen (Tylenol 325mg Tab) 650 mg PO ONCE ONE Stop: 04/01/17 08:40 Acetaminophen (Tylenol 325mg Tab) 650 mg PO ONCE ONE Stop: 04/02/17 09:01 Artificial Tears (Artificial Tears) 2 drop OU Q4 PRN PRN Reason: Dry eyes Last Admin: 03/29/17 16:22 Dose: 2 drop Cyanocobalamin (Vitamin B12 1000 Mcg Tab) 1,000 mcg PO DAILY [facility] Last Admin: 04/01/17 08:31 Dose: 1,000 mcg Diphenhydramine HCl (Benadryl) 25 mg IVP ONCE ONE Stop: 04/01/17 08:40 Diphenhydramine HCl (Benadryl) 25 mg IVP ONCE ONE Stop: 04/02/17 08:01 Guaifenesin/Dextromethorphan (Robitussin Dm) 10 ml PO Q6 PRN PRN Reason: Cough Last Admin: 03/31/17 02:12 Dose: 10 ml Iron Sucrose 100 mg/ Sodium (Chloride) 105 mls @ 105 mls/hr IVPB DAILY [facility] Last Admin: 03/31/17 14:35 Dose: 105 mls/hr Immune Globulin 30 gm/ Sterile (Water) 300 mls @ 100 mls/hr IV DAILY [facility] Last Admin: 03/31/17 10:26 Dose: 100 mls/hr Methylprednisolone 40 mg/ (Sodium Chloride) 50 mls @ 100 mls/hr IVPB DAILY [facility] Last Admin: 04/01/17 08:26 Dose: 100 mls/hr Insulin Human Regular (Humulin R) 0 units SC ACHS [facility] PRN Reason: Protocol Last Admin: 04/01/17 06:34 Dose: Not Given Ondansetron HCl (Zofran Inj) 4 mg IVP Q4 PRN PRN Reason: Nausea/Vomiting Oxycodone/Acetaminophen (Percocet 5/325 Mg Tab) 1 tab PO Q4H PRN PRN Reason: Pain, severe (8-10) Stop: 04/03/17 12:21 Last Admin: 03/31/17 21:15 Dose: 1 tab Thrombin (Thrombin-Jmi 5,000 Intl Units [place] Kit) 5,000 iu TOP ONCE ONE Stop: 04/01/17 09:06 - Labs Labs: 03/31/17 05:00 03/28/17 05:10 PT 11.7 Seconds (9.8-13.1) 03/27/17 10:25 INR 1.0 (0.9-1.2) 03/27/17 10:25
[2017-04-01 09:40] LABS: BASO # 0.1 K/uL (0.0-0.2); BASO % 0.6 % (0.0-2.0); EOS % 0.3 % (0.0-4.0); HEMOGLOBIN 10.6 g/dL (12.0-16.0); LYMPH # 2.7 K/uL (1.0-4.3); LYMPH % 24.8 % (20.0-40.0); MEAN CELL VOLUME 76.5 fl (81.0-99.0); MEAN CORPUSCULAR HEMOGLOBIN 23.7 pg (27.0-31.0); MEAN PLATELET VOLUME 11.4 fl (7.2-11.7); MONO # 1.1 K/uL (0.0-0.8); MONO % 9.8 % (0.0-10.0); NEUT # 7.1 K/uL (1.8-7.0); NEUT % 64.5 % (50.0-75.0); NRBC % 0.1 % (0.0-0.0); RBC 4.48 Mil/uL (3.80-5.20); RED CELL DISTRIBUTION WIDTH 22.1 % (11.5-14.5)
--- NOTE | 2017-04-01 15:09 | CP.PCM.PN ---
Subjective - Date & Time of Evaluation Date of Evaluation: 04/01/17 Time of Evaluation: 10:20 - Subjective Subjective: F/U Thrombocytopenia. Pt awake, alert, Pain in the R knee. Objective - Vital Signs/Intake and Output Vital Signs (last 24 hours): Temp Pulse Resp BP Pulse Ox 98.4 F 70 18 122/68 96 04/01/17 12:00 04/01/17 12:00 04/01/17 12:00 04/01/17 12:00 04/01/17 12:00 Intake and Output: 04/01/17 04/01/17 06:59 18:59 Intake Total 1610 Balance 1610 - Medications Medications: Current Medications Acetaminophen (Tylenol 325mg Tab) 650 mg PO ONCE ONE Stop: 04/02/17 09:01 Artificial Tears (Artificial Tears) 2 drop OU Q4 PRN PRN Reason: Dry eyes Last Admin: 03/29/17 16:22 Dose: 2 drop Cyanocobalamin (Vitamin B12 1000 Mcg Tab) 1,000 mcg PO DAILY [facility] Last Admin: 04/01/17 08:31 Dose: 1,000 mcg Diphenhydramine HCl (Benadryl) 25 mg IVP ONCE ONE Stop: 04/02/17 08:01 Guaifenesin/Dextromethorphan (Robitussin Dm) 10 ml PO Q6 PRN PRN Reason: Cough Last Admin: 03/31/17 02:12 Dose: 10 ml Iron Sucrose 100 mg/ Sodium (Chloride) 105 mls @ 105 mls/hr IVPB DAILY [facility] Last Admin: 04/01/17 14:03 Dose: 105 mls/hr Methylprednisolone 40 mg/ (Sodium Chloride) 50 mls @ 100 mls/hr IVPB DAILY [facility] Last Admin: 04/01/17 08:26 Dose: 100 mls/hr Immune Globulin (Octagam 5%) 600 mls @ 200 mls/hr IV DAILY [facility] Insulin Human Regular (Humulin R) 0 units SC ACHS [facility] PRN Reason: Protocol Last Admin: 04/01/17 12:34 Dose: Not Given Ondansetron HCl (Zofran Inj) 4 mg IVP Q4 PRN PRN Reason: Nausea/Vomiting Oxycodone/Acetaminophen (Percocet 5/325 Mg Tab) 1 tab PO Q4H PRN PRN Reason: Pain, severe (8-10) Stop: 04/03/17 12:21 Last Admin: 03/31/17 21:15 Dose: 1 tab - Labs Labs: 04/01/17 08:40 03/28/17 05:10 PT 11.7 Seconds (9.8-13.1) 03/27/17 10:25 INR 1.0 (0.9-1.2) 03/27/17 10:25 - Constitutional Appears: No Acute Distress - Head Exam Head Exam: NORMAL INSPECTION - Eye Exam Eye Exam: PERRL - ENT Exam Additional comments: Bleeding from the L upper tooth. - Neck Exam Neck Exam: Normal Inspection - Respiratory Exam Respiratory Exam: NORMAL BREATHING PATTERN - Cardiovascular Exam Cardiovascular Exam: REGULAR RHYTHM - GI/Abdominal Exam GI & Abdominal Exam: Soft, Normal Bowel Sounds - Extremities Exam Extremities Exam: Tenderness (R knee with decreased ROM, dressing in place) Additional comments: S/P R TKR, L knee with minimal tenderness and healed scar from previous L TKR. Ecchymosis U/E, L/E. - Back Exam Back Exam: NORMAL INSPECTION - Neurological Exam Neurological Exam: Alert, Awake, Oriented x3. absent: Motor Sensory Deficit - Psychiatric Exam Psychiatric exam: Normal Affect, Normal Mood - Skin Skin Exam: Warm (Ecchymosis) Assessment and Plan (1) Thrombocytopenia Status: Acute (2) Anemia Status: Acute (3) Multiple bruises Status: Acute (4) Status post total knee replacement, right Status: Chronic (5) Status post total knee replacement, left Status: Chronic (6) DMII (diabetes mellitus, type 2) Status: Chronic - Assessment and Plan (Free Text) Plan: PLT count in 9, Hgb 10.6, Continue current Tx, Octagam (2nd day).
[2017-04-01] MEDS: Oxycodone/Acetaminophen 5/325 mg Tab PO PRN (23:59)
[2017-04-02] MEDS: Insulin Regular 100 units/ml SC SCH ×4 (06:45→21:56)
[2017-04-02] MEDS ORDERED: DiphenhydrAMINE 50 mg/ml Inj IVP ONE (08:00)
[2017-04-02 09:06] LABS: HEMOGLOBIN 10.7 g/dL (12.0-16.0); MEAN CELL VOLUME 76.8 fl (81.0-99.0); MEAN CORPUSCULAR HEMOGLOBIN 23.7 pg (27.0-31.0); MEAN CORPUSCULAR HGB CONC 30.9 g/dL (33.0-37.0); RBC 4.52 Mil/uL (3.80-5.20); WHITE BLOOD COUNT 8.4 K/uL (4.8-10.8)
[2017-04-02] MEDS: methylPREDNISolone 40 MG in Sodium Chloride 0.9% 50 ML IVPB SCH (09:49)
[2017-04-02] MEDS: Immune Globulin 50 MG/ML 600 ML IV SCH (11:10)
--- NOTE | 2017-04-02 15:37 | CP.PCM.PN ---
Subjective - Date & Time of Evaluation Date of Evaluation: 04/02/17 Time of Evaluation: 12:20 - Subjective Subjective: F/U Thrombocytopenia. Pt c/o of pain in R knee, no bleeding from the left upper tube. Objective - Vital Signs/Intake and Output Vital Signs (last 24 hours): Temp Pulse Resp BP Pulse Ox 98.2 F 72 18 137/81 97 04/02/17 12:42 04/02/17 12:42 04/02/17 12:42 04/02/17 12:42 04/02/17 12:42 Intake and Output: 04/02/17 04/02/17 06:59 18:59 Intake Total 200 Balance 200 - Medications Medications: Current Medications Artificial Tears (Artificial Tears) 2 drop OU Q4 PRN PRN Reason: Dry eyes Last Admin: 03/29/17 16:22 Dose: 2 drop Cyanocobalamin (Vitamin B12 1000 Mcg Tab) 1,000 mcg PO DAILY [facility] Last Admin: 04/02/17 09:04 Dose: 1,000 mcg Guaifenesin/Dextromethorphan (Robitussin Dm) 10 ml PO Q6 PRN PRN Reason: Cough Last Admin: 03/31/17 02:12 Dose: 10 ml Iron Sucrose 100 mg/ Sodium (Chloride) 105 mls @ 105 mls/hr IVPB DAILY [facility] Last Admin: 04/01/17 14:03 Dose: 105 mls/hr Methylprednisolone 40 mg/ (Sodium Chloride) 50 mls @ 100 mls/hr IVPB DAILY [facility] Last Admin: 04/02/17 09:49 Dose: 100 mls/hr Immune Globulin (Octagam 5%) 600 mls @ 200 mls/hr IV DAILY [facility] Last Admin: 04/02/17 11:10 Dose: 200 mls/hr Immune Globulin (Octagam 5%) 400 mls @ 200 mls/hr IV DAILY [facility] Insulin Human Regular (Humulin R) 0 units SC ACHS [facility] PRN Reason: Protocol Last Admin: 04/02/17 12:49 Dose: Not Given Ondansetron HCl (Zofran Inj) 4 mg IVP Q4 PRN PRN Reason: Nausea/Vomiting Oxycodone/Acetaminophen (Percocet 5/325 Mg Tab) 1 tab PO Q4H PRN PRN Reason: Pain, severe (8-10) Stop: 04/03/17 12:21 Last Admin: 04/01/17 23:59 Dose: 1 tab - Labs Labs: 04/02/17 08:54 03/28/17 05:10 PT 11.7 Seconds (9.8-13.1) 03/27/17 10:25 INR 1.0 (0.9-1.2) 03/27/17 10:25 - Constitutional Appears: No Acute Distress - Head Exam Head Exam: NORMAL INSPECTION - Eye Exam Eye Exam: PERRL - ENT Exam Additional comments: L upper tooth no bleeding. - Neck Exam Neck Exam: Normal Inspection - Respiratory Exam Respiratory Exam: NORMAL BREATHING PATTERN - Cardiovascular Exam Cardiovascular Exam: REGULAR RHYTHM - GI/Abdominal Exam GI & Abdominal Exam: Soft, Normal Bowel Sounds - Extremities Exam Extremities Exam: Tenderness (R Knee with decreased ROM, S/P R TKR with dressing in place. L knee healed scar from TKR) Additional comments: Ecchymosis U/E and chest. - Back Exam Back Exam: NORMAL INSPECTION - Neurological Exam Neurological Exam: Alert, Oriented x3. absent: Motor Sensory Deficit - Psychiatric Exam Psychiatric exam: Normal Affect, Normal Mood - Skin Skin Exam: Warm (Ecchymosis.) Assessment and Plan (1) Thrombocytopenia Status: Acute (2) Anemia Status: Acute (3) Multiple bruises Status: Acute (4) Status post total knee replacement, right Status: Chronic (5) Status post total knee replacement, left Status: Chronic (6) DMII (diabetes mellitus, type 2) Status: Chronic - Assessment and Plan (Free Text) Plan: PLT count 7.6 Hgb 10.7, 3rd day for Octagam, continue rest of Tx.
[2017-04-02] MEDS: Oxycodone/Acetaminophen 5/325 mg Tab PO PRN (21:54)
[2017-04-03] MEDS: Insulin Regular 100 units/ml SC SCH ×4 (08:30→22:37)
[2017-04-03 08:39] LABS: MEAN CELL VOLUME 76.9 fl (81.0-99.0); MEAN CORPUSCULAR HGB CONC 31.2 g/dL (33.0-37.0); RBC 4.16 Mil/uL (3.80-5.20); RED CELL DISTRIBUTION WIDTH 23.6 % (11.5-14.5)
[2017-04-03] MEDS ORDERED: IMMUNE GLOBULIN 50 MG/ML IV SCH (09:00)
[2017-04-03] MEDS: Artificial Tears Opht Soln OU PRN (09:27)
[2017-04-03] MEDS: methylPREDNISolone 40 MG in Sodium Chloride 0.9% 50 ML IVPB SCH (09:27)
[2017-04-03] MEDS: Immune Globulin 50 MG/ML 600 ML IV SCH (09:41)
--- NOTE | 2017-04-03 15:41 | CP.PCM.PN ---
Subjective - Date & Time of Evaluation Date of Evaluation: 04/03/17 Time of Evaluation: 11:20 - Subjective Subjective: F/U Thrombocytopenia Pt c/o pain in R knee, upper tooth no bleeding. Objective - Vital Signs/Intake and Output Vital Signs (last 24 hours): Temp Pulse Resp BP Pulse Ox 97.3 F L 64 20 107/44 L 97 04/03/17 12:14 04/03/17 12:14 04/03/17 12:14 04/03/17 12:14 04/03/17 12:14 Intake and Output: 04/03/17 04/03/17 06:59 18:59 Intake Total 850 Balance 850 - Medications Medications: Current Medications Acetaminophen (Tylenol 325mg Tab) 650 mg PO Q4 PRN PRN Reason: Pain, moderate (4-7) Last Admin: 04/03/17 14:07 Dose: 650 mg Artificial Tears (Artificial Tears) 2 drop OU Q4 PRN PRN Reason: Dry eyes Last Admin: 04/03/17 09:27 Dose: 2 drop Cyanocobalamin (Vitamin B12 1000 Mcg Tab) 1,000 mcg PO DAILY [facility] Last Admin: 04/03/17 09:28 Dose: 1,000 mcg Guaifenesin/Dextromethorphan (Robitussin Dm) 10 ml PO Q6 PRN PRN Reason: Cough Last Admin: 03/31/17 02:12 Dose: 10 ml Iron Sucrose 100 mg/ Sodium (Chloride) 105 mls @ 105 mls/hr IVPB DAILY [facility] Last Admin: 04/03/17 10:00 Dose: 105 mls/hr Methylprednisolone 40 mg/ (Sodium Chloride) 50 mls @ 100 mls/hr IVPB DAILY [facility] Last Admin: 04/03/17 09:27 Dose: 100 mls/hr Insulin Human Regular (Humulin R) 0 units SC ACHS [facility] PRN Reason: Protocol Last Admin: 04/03/17 12:09 Dose: 1 units Ondansetron HCl (Zofran Inj) 4 mg IVP Q4 PRN PRN Reason: Nausea/Vomiting - Labs Labs: 04/03/17 06:00 03/28/17 05:10 PT 11.7 Seconds (9.8-13.1) 03/27/17 10:25 INR 1.0 (0.9-1.2) 03/27/17 10:25 - Constitutional Appears: No Acute Distress - Head Exam Head Exam: NORMAL INSPECTION - Eye Exam Eye Exam: PERRL - ENT Exam ENT Exam: Normal Oropharynx Additional comments: No bleeding tooth - Neck Exam Neck Exam: Normal Inspection - Respiratory Exam Respiratory Exam: NORMAL BREATHING PATTERN - Cardiovascular Exam Cardiovascular Exam: REGULAR RHYTHM - GI/Abdominal Exam GI & Abdominal Exam: Soft, Normal Bowel Sounds - Extremities Exam Extremities Exam: Tenderness (R TKR with decreased ROM 2nd to pain. L TKR minimal tenderness with healed scar.) Additional comments: Ecchymosis U/E, L/E - Back Exam Back Exam: NORMAL INSPECTION - Neurological Exam Neurological Exam: Alert, Oriented x3. absent: Motor Sensory Deficit - Psychiatric Exam Psychiatric exam: Normal Affect, Normal Mood - Skin Skin Exam: Warm (Ecchymosis) Assessment and Plan (1) Thrombocytopenia Status: Acute (2) Anemia Status: Acute (3) Multiple bruises Status: Acute (4) Status post total knee replacement, right Status: Chronic (5) Status post total knee replacement, left Status: Chronic (6) DMII (diabetes mellitus, type 2) Status: Chronic - Assessment and Plan (Free Text) Plan: PLT increased to 13, Hgb 10, on IV IVGG continue rest of Tx.
[2017-04-04 00:26] VITALS: RESP 18
[2017-04-04] MEDS: Insulin Regular 100 units/ml SC SCH ×2 (06:50→12:47)
[2017-04-04] MEDS: methylPREDNISolone 40 MG in Sodium Chloride 0.9% 50 ML IVPB SCH ×2 (09:11→09:53)
[2017-04-04 09:45] LABS: BASO # 0.1 K/uL (0.0-0.2); BASO % 0.7 % (0.0-2.0); EOS # 0.1 K/uL (0.0-0.7); EOS % 0.9 % (0.0-4.0); LYMPH # 2.2 K/uL (1.0-4.3); LYMPH % 22.9 % (20.0-40.0); MEAN CELL VOLUME 77.9 fl (81.0-99.0); MEAN CORPUSCULAR HEMOGLOBIN 24.4 pg (27.0-31.0); MEAN CORPUSCULAR HGB CONC 31.3 g/dL (33.0-37.0); MEAN PLATELET VOLUME 9.7 fl (7.2-11.7); MONO # 0.9 K/uL (0.0-0.8); MONO % 9.4 % (0.0-10.0); NEUT # 6.5 K/uL (1.8-7.0); NEUT % 66.1 % (50.0-75.0); NRBC % 0.1 % (0.0-0.0); RBC 4.51 Mil/uL (3.80-5.20); RED CELL DISTRIBUTION WIDTH 24.2 % (11.5-14.5); WHITE BLOOD COUNT 9.8 K/uL (4.8-10.8)
--- NOTE | 2017-04-04 11:09 | CP.PCM.PN ---
Subjective - Date & Time of Evaluation Date of Evaluation: 04/04/17 Time of Evaluation: 11:05 - Subjective Subjective: The pt has finally responded to the IVGG, and her platelets are up to 64K. She may be discharged today if ok with Dr doty. She should have a cbc done in 2 weeks and a decision can be made if she needs any more IVGG. Objective - Vital Signs/Intake and Output Vital Signs (last 24 hours): Temp Pulse Resp BP Pulse Ox 98.6 F 75 18 122/69 97 04/04/17 08:00 04/04/17 08:00 04/04/17 08:00 04/04/17 08:00 04/04/17 08:00 - Medications Medications: Current Medications Acetaminophen (Tylenol 325mg Tab) 650 mg PO Q4 PRN PRN Reason: Pain, moderate (4-7) Last Admin: 04/03/17 21:14 Dose: 650 mg Artificial Tears (Artificial Tears) 2 drop OU Q4 PRN PRN Reason: Dry eyes Last Admin: 04/03/17 09:27 Dose: 2 drop Cyanocobalamin (Vitamin B12 1000 Mcg Tab) 1,000 mcg PO DAILY [facility] Last Admin: 04/04/17 09:11 Dose: 1,000 mcg Guaifenesin/Dextromethorphan (Robitussin Dm) 10 ml PO Q6 PRN PRN Reason: Cough Last Admin: 03/31/17 02:12 Dose: 10 ml Iron Sucrose 100 mg/ Sodium (Chloride) 105 mls @ 105 mls/hr IVPB DAILY [facility] Last Admin: 04/04/17 10:00 Dose: 105 mls/hr Methylprednisolone 40 mg/ (Sodium Chloride) 50 mls @ 100 mls/hr IVPB DAILY [facility] Last Admin: 04/04/17 09:53 Dose: Not Given Insulin Human Regular (Humulin R) 0 units SC ACHS [facility] PRN Reason: Protocol Last Admin: 04/04/17 06:50 Dose: Not Given Ondansetron HCl (Zofran Inj) 4 mg IVP Q4 PRN PRN Reason: Nausea/Vomiting - Labs Labs: 04/04/17 09:25 03/28/17 05:10 PT 11.7 Seconds (9.8-13.1) 03/27/17 10:25 INR 1.0 (0.9-1.2) 03/27/17 10:25
[2017-04-04 12:24] VITALS: BP 128/69; PULSE 77; TEMP 98.7; O2SAT 98
[2017-04-04 13:19] LABS: ALB/GLOB RATIO 0.8 (1.0-2.1); ALBUMIN 4.3 g/dL (3.5-5.0); ALT/SGPT 22 U/L (9-52); AST/SGOT 37 U/L (14-36); BLOOD UREA NITROGEN 15 mg/dl (7-17); GFR AFRICAN-AMERICAN > 60; GFR NON-AFRICAN AMERICAN > 60
--- NOTE | 2017-04-04 16:37 | CP.PCM.PN ---
Subjective - Date & Time of Evaluation Date of Evaluation: 04/04/17 Time of Evaluation: 20:00 - Subjective Subjective: F/U Thrombocytopenia. Objective - Vital Signs/Intake and Output Vital Signs (last 24 hours): Temp Pulse Resp BP Pulse Ox 98.7 F 77 18 128/69 98 04/04/17 12:00 04/04/17 12:00 04/04/17 12:00 04/04/17 12:00 04/04/17 12:00 Intake and Output: 04/04/17 04/04/17 06:59 18:59 Intake Total 860 Balance 860 - Labs Labs: 04/04/17 09:25 04/04/17 12:57 PT 11.7 Seconds (9.8-13.1) 03/27/17 10:25 INR 1.0 (0.9-1.2) 03/27/17 10:25 - Constitutional Appears: No Acute Distress - Head Exam Head Exam: NORMAL INSPECTION - Eye Exam Eye Exam: PERRL - ENT Exam ENT Exam: Normal Oropharynx - Neck Exam Neck Exam: Normal Inspection - Respiratory Exam Respiratory Exam: NORMAL BREATHING PATTERN - Cardiovascular Exam Cardiovascular Exam: REGULAR RHYTHM - GI/Abdominal Exam GI & Abdominal Exam: Soft, Normal Bowel Sounds - Extremities Exam Extremities Exam: Tenderness (R TKR with decreased ROM 2nd to pain. L TKR minimal tenderness with healed scar.) Additional comments: Ecchymosis U/E, L/E - Back Exam Back Exam: NORMAL INSPECTION - Neurological Exam Neurological Exam: Alert, Oriented x3. absent: Motor Sensory Deficit - Psychiatric Exam Psychiatric exam: Normal Affect, Normal Mood - Skin Skin Exam: Warm (Ecchymosis.) Assessment and Plan (1) Thrombocytopenia Status: Acute (2) Anemia Status: Acute (3) Multiple bruises Status: Acute (4) Status post total knee replacement, right Status: Chronic (5) Status post total knee replacement, left Status: Chronic (6) DMII (diabetes mellitus, type 2) Status: Chronic
--- NOTE | 2017-04-05 09:46 | PQF GENQUE ---
This form is a permanent part of the medical record DR. Diana STEWART: WAS THE ETIOLOGY OF THROMBOCYTOPENIA DETERMINED? Clarification of your documentation is requested to better reflect the severity of illness and intensity of treatment of your patient. Indicators present Pt has antiplatelet IgG antibpody causing thrombocytopenia. Bone marrow smear showed normal to increased megakaryocytes . Pt responded to IVGG and platelets went from 7 to 64 in 4 days. [] Specify: [] [] Specify: [] [] Specify: [] [] Specify: [] Location in the medical record that reflects the above clinical findings: [] progress notes Treatment Provided: [] PHYSICIAN'S RESPONSE Based on your medical judgment of the clinical indicators outlined above please clarify the following: [] Practitioner response [] If unable to determine, please check the box, sign and date. Present On Admission (POA) Indicator: [] Present at the time of admission yes [] Not present at the time of admission [] Clinically Undetermined In responding to this query, please exercise your independent professional judgment. The fact that a question is asked does not imply that any particular answer is desired or expected. Thank you for your clarification on this documentation. If you have any questions please call:[ ] * Thank you * ,BASIL ALAMO [phone] market research senior project manager [place]
== END 2017-04-04 15:19 | disposition home or self-care (01) | DRG 813 ==
LOC: H.ER 09:35 → H.ERHOLD 11:25 → H.TEL 15:38
PROVIDERS: ADMIT Internal Medicine Pulmonary Disease; ATTEND Internal Medicine Pulmonary Disease
PROC: 30233N1 Transfusion of Nonautologous Red Blood Cells into Peripheral Vein, Percutaneous Approach (ICD-10-PCS; 2017-03-28)
PROC: 30233R1 Transfusion of Nonautologous Platelets into Peripheral Vein, Percutaneous Approach (ICD-10-PCS; 2017-03-28)
PROC: 079T3ZX Drainage of Bone Marrow, Percutaneous Approach, Diagnostic (ICD-10-PCS; principal; 2017-03-29)
DX: D69.49 Other primary thrombocytopenia (principal); E11.9 Type 2 diabetes mellitus without complications; D64.9 Anemia, unspecified; M19.90 Unspecified osteoarthritis, unspecified site; M25.561 Pain in right knee; Z96.653 Presence of artificial knee joint, bilateral; K08.89 Other specified disorders of teeth and supporting structures; M79.604 Pain in right leg

== ENCOUNTER 2017-10-01 10:43 | Emergency (ER) | payer MEDICARE, MEDICAID ==
[2017-10-01 10:52] VITALS: BMI 28.0
[2017-10-01 10:53] VITALS: BP 155/78; PULSE 102; RESP 16; O2SAT 99
--- NOTE | 2017-10-01 11:04 | ED PDOC ---
HPI: General Adult Time Seen by Provider: 10/01/17 10:58 Chief Complaint (Nursing): Abnormal Skin Integrity History Per: Patient Onset/Duration Of Symptoms: Hrs (1) Severity: Mild Additional Complaint(s): Fell off toilet after vomiting once. Hit head on cabinet sustaining lac to right eyebrow. No LOC. No dizziness or headache. Feels fine now. No vomiting orabd pain. Past Medical History Vital Signs: Last Vital Signs Temp Pulse 102 H 10/01/17 10:52 Resp 16 10/01/17 10:52 BP 155/78 H 10/01/17 10:52 Pulse Ox 99 10/01/17 11:06 - Medical History PMH: Arthritis (knees), Diabetes, HTN Denies: Anemia, Chronic Kidney Disease Other PMH: Thrombocytopenia - Family History Family History: States: Unknown Family Hx - Home Medications Home Medications: Ambulatory Orders Medication Instructions Recorded Metformin HCl [Glucophage] 1 tab PO BID 03/27/17 Non-Formulary 1 tab PO BID 03/27/17 SITagliptin [Januvia] 1 tab PO DAILY 03/27/17 Cyanocobalamin [Vitamin B12 1000 1,000 mcg PO DAILY #20 tab 04/04/17 mcg Tab] Ferrous Sulfate [Feosol] 325 mg PO DAILY #30 tab 04/04/17 Naproxen [Naprosyn] 500 mg PO Q12H #20 tab 10/01/17 - Allergies Allergies/Adverse Reactions: Allergies Allergy/AdvReac Type Severity Reaction Status Date / Time moxifloxacin [From Avelox] Allergy RASH Verified 10/01/17 10:53 Review of Systems Cardiovascular: Negative for: Chest Pain, Palpitations Gastrointestinal: Positive for: Vomiting. Negative for: Nausea, Abdominal Pain , Diarrhea Neurological: Negative for: Weakness, Numbness, Seizures, Headache, Dizziness Physical Exam - Physical Exam Appears: Positive for: Non-toxic, No Acute Distress Skin: Positive for: Normal Color, Warm, DRY Eye Exam: Positive for: EOMI, PERRL, Other (Sup abrasion/lac right eyebrow. Mild swelling and ecchymosis right lateral periorbital area. No palp fx) Cardiovascular/Chest: Positive for: Regular Rate, Rhythm Gastrointestinal/Abdominal: Positive for: Bowel Sounds, Soft. Negative for: Tenderness Neurologic/Psych: Positive for: Alert, Oriented. Negative for: Motor/Sensory Deficits - ECG O2 Sat by Pulse Oximetry: 99 Disposition - Clinical Impression Clinical Impression: Contusion - Patient ED Disposition Is Patient to be Admitted: No Counseled Patient/Family Regarding: Studies Performed, Diagnosis, Need For Followup, Rx Given - Disposition Referrals: [facility] [Outside] Disposition: Routine/Home Disposition Time: 12:15 Condition: FAIR Prescriptions: Naproxen [Naprosyn] 500 mg PO Q12H #20 tab Instructions: Contusion in Adults (ED), Head Injury (ED) Forms: [facility] (Malagasy) Print Language: PASHTO
--- NOTE | 2017-10-01 11:58 | CT ---
PROCEDURE: CT HEAD WITHOUT CONTRAST. HISTORY: r/o bleed COMPARISON: None available. TECHNIQUE: Axial computed tomography images were obtained through the head/brain without intravenous contrast. Radiation dose: Total exam DLP = 1122.52 mGy-cm. This CT exam was performed using one or more of the following dose reduction techniques: Automated exposure control, adjustment of the mA and/or kV according to patient size, and/or use of iterative reconstruction technique. FINDINGS: HEMORRHAGE: No intracranial hemorrhage. BRAIN: Good corticomedullary differentiation is seen. Mild, diffuse expansion of the ventriculosulcal and cisternal spaces is appreciated with white matter lucency compatible with diffuse cerebral atrophy and chronic microangiopathy. No suspicious extra-axial fluid collection is identified and the midline brain anatomy appears grossly nonfocal as imaged. There is no mass effect throughout. VENTRICLES: Unremarkable. No hydrocephalus. CALVARIUM: Unremarkable. PARANASAL SINUSES: Incidental active sinusitis left sphenoid sinus. MASTOID AIR CELLS: Unremarkable as visualized. No inflammatory changes. OTHER FINDINGS: None. IMPRESSION: No definite acute intracranial findings as described above. Limited age-related neuro degenerative changes are identified throughout the cerebrum. Incidental left sinusitis identified.
[2017-10-01] MEDS ORDERED: Bacitracin 500 Units/gm Oint Foilpak UD ONE (12:45)
== END 2017-10-01 11:02 | disposition home or self-care (01) ==
LOC: H.ER 10:43
DX: S09.90XA Unspecified injury of head, initial encounter (principal); W19.XXXA Unspecified fall, initial encounter; Y92.002 Bathroom of unspecified non-institutional (private) residence as the place of occurrence of the external cause; R11.10 Vomiting, unspecified

== ENCOUNTER 2018-09-11 09:51 | Emergency (ER) | payer MEDICARE, MEDICAID ==
[2018-09-11 09:53] VITALS: BMI 27.1
[2018-09-11 09:54] VITALS: BP 146/76; PULSE 88; RESP 17; TEMP 97.8; O2SAT 98
[2018-09-11] MEDS ORDERED: Tdap Vaccine 0.5 ml Vial (10-64 yrs) IM ONE ×2 (10:56→11:10)
--- NOTE | 2018-09-11 10:59 | ED PDOC ---
Lower Extremity Pain/Injury Time Seen by Provider: 09/11/18 10:26 Chief Complaint (Nursing): Lower Extremity Problem/Injury History Per: Patient History/Exam Limitations: no limitations Onset/Duration Of Symptoms: Hrs Additional Complaint(s): Patient dropped a knife on her R foot sustaining a superficial laceration that is now well healed and no longer bleeding. Patient came to the ER for a tetanus shot. States she has no foot pain on movement, able to walk without difficulty. Past Medical History Reviewed: Historical Data, Nursing Documentation Vital Signs: Last Vital Signs Temp 97.8 F 09/11/18 09:53 Pulse 88 09/11/18 09:53 Resp 17 09/11/18 09:53 BP 146/76 09/11/18 09:53 Pulse Ox 98 09/11/18 09:53 - Medical History PMH: Arthritis (knees), Diabetes Denies: Anemia, HTN (Patient denies), Chronic Kidney Disease - Family History Family History: States: Unknown Family Hx - Home Medications Home Medications: Ambulatory Orders Medication Instructions Recorded Metformin HCl [Glucophage] 1 tab PO BID 03/27/17 Non-Formulary 1 tab PO BID 03/27/17 SITagliptin [Januvia] 1 tab PO DAILY 03/27/17 Cyanocobalamin [Vitamin B12 1000 1,000 mcg PO DAILY #20 tab 04/04/17 mcg Tab] Ferrous Sulfate [Feosol] 325 mg PO DAILY #30 tab 04/04/17 Naproxen [Naprosyn] 500 mg PO Q12H #20 tab 10/01/17 - Allergies Allergies/Adverse Reactions: Allergies Allergy/AdvReac Type Severity Reaction Status Date / Time moxifloxacin [From Avelox] Allergy RASH Verified 10/01/17 10:53 Review of Systems ROS Statement: Except As Marked, All Systems Reviewed And Found Negative Musculoskeletal: Positive for: Foot Pain Physical Exam - Reviewed Nursing Documentation Reviewed: Yes Vital Signs Reviewed: Yes - Physical Exam Appears: Positive for: Well, Non-toxic, No Acute Distress Extremity: Positive for: Other (<1cm laceration to dorsum of foot, healing, no bony tenderness, FROM of foot and all toes) - ECG O2 Sat by Pulse Oximetry: 98 Pulse Ox Interpretation: Normal Medical Decision Making Medical Decision Making: Patient with healing foot lac, no sutures needed, no xray needed. Will update tetanus and d/c Disposition - Clinical Impression Clinical Impression: Laceration - Patient ED Disposition Is Patient to be Admitted: No - Disposition Referrals: [facility] [Outside] Disposition: Routine/Home Disposition Time: 11:00 Condition: STABLE Instructions: Wound Care (DC)
== END 2018-09-11 11:19 | disposition home or self-care (01) ==
LOC: H.ER 09:51
DX: S91.311A Laceration without foreign body, right foot, initial encounter (principal); W26.0XXA Contact with knife, initial encounter; E11.9 Type 2 diabetes mellitus without complications; Z23 Encounter for immunization